=== PATIENT | female | born 1965 | race Caucasian/White ===

== ENCOUNTER → 2021-11-08 | Outpatient (CLI) | payer OTHER ==
[2016-09-05 10:53] VITALS: BP 104/61
--- NOTE | 2021-11-08 11:35 | KCIC ---
CT SCREENING FOR CORONARY ARTERY History: Reason: Mixed hyperlipidemia. Cardiovascular screening. / Spl. Instructions: / History: Technique: With retrospective electrocardiogram gating axial reconstructed noncontrast images of the chest at the level of the coronary arteries was performed. Images were post processed on workstation and calcium score calculated using the modified Agatston Janowitz protocol. Exposure: One or more of the following individualized dose reduction techniques were utilized for thi s examination: 1. Automated exposure control 2. Adjustment of the mA and/or kV according to patient size 3. Use of iterative reconstruction technique. Comparison: None Findings: Total coronary calcium score is 0. There is no plaque burden and low cardiovascular disease risk. This is based on the calcium score of 0 of the left main coronary artery, 0 of the left anteri or descending artery, score of 0 of the left circumflex artery and score of 0 of the right coronary a rtery. Noncoronary findings: No significant incidental findings. IMPRESSION: 1. Low cardiovascular disease risk. Calcium score 0. Electronically signed by: Nura Kelsey DO (11/08/2021 11:33 AM) [facility]
== END ==
LOC: KCIC CT 10:46
PROVIDERS: ATTEND Family Medicine
DX: I25.10 Atherosclerotic heart disease of native coronary artery without angina pectoris (principal); E78.5 Hyperlipidemia, unspecified
CPT/HCPCS: 75571